=== PATIENT | male | born 1960 | race African-American/Black ===

== ENCOUNTER 2021-03-16 05:34 | Emergency (ER) | payer BC, OTHER ==
[~2021-03-16] VITALS: Ht 188 cm; Wt 81.3 kg
[2021-03-16] MEDS ORDERED: HYDR30CR61 TP (06:42)
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
[2021-03-16 07:13] VITALS: BP 128/77
== END 2021-03-16 07:15 | disposition home or self-care (01) ==
LOC: ER 05:34
DX: S76.912A Strain of unspecified muscles, fascia and tendons at thigh level, left thigh, initial encounter (principal); S76.911A Strain of unspecified muscles, fascia and tendons at thigh level, right thigh, initial encounter; K64.4 Residual hemorrhoidal skin tags; Z88.6 Allergy status to analgesic agent; X58.XXXA Exposure to other specified factors, initial encounter; Y93.89 Activity, other specified; Y92.89 Other specified places as the place of occurrence of the external cause; Y99.8 Other external cause status
CPT/HCPCS: 99284